=== PATIENT | female | born 1990 | race Caucasian/White ===

== ENCOUNTER 2025-04-15 09:22 | Emergency (ER) | payer SELFPAY ==
[2025-04-15 09:52] VITALS: BP 102/55; PULSE 79; RESP 20; TEMP 36.7; O2SAT 99
--- OUTSIDE RECORDS SUMMARY | 2025-04-15 09:52 | XMS_ITS | Encounter Summary ---
Author Organization [facility] Address [address] [facility] [place] [address] Care Team Providers Care Residential Real Estate Assistant Name Role Phone Tristian Mayes MD Primary Care Provider [phone] Encounter Details Date Type Department Care Team (Late st Contact Info) Description 03/01/2025 Results Follow-Up [facility] - Internal Medicine [address] [phone] Laura Navarro, ADMITTING OFFICER-PREPARATION PLANT SUPERVISOR [address] [id number] Social History Tobacco Use Types Packs/Day Years Used Date Smoking Tobacco: Former Cigarettes Smokeless Tobacco: Never Alcohol Use Standard Drinks/Week Comments Not Currently 3.3 (1 standard drink = 0.6 oz p ure alcohol) occ wine/beer/liquor AUDIT-C Answer Date Recorded Q1: How often do you have a drink containing alc ohol? 2-3 times a week 12/03/2022 Q2: How many drinks containi ng alcohol do you have on a typical day when you are drinking? 1 or 2 12/03/2022 Frequency of Binge Drinking Not on file 11/16 Overall Financial Resource Strain (CARDIA) Answe r Date Recorded How hard is it for you to pa y for the very basics like food, housing, medical care, and heating? Not very hard 03/22/2024 PHQ-2 Answer Date Recorded Patient Health Questionnaire-2 Score 2 03/01/2025 [facility] - Occupational Stress Questionnaire Answer Date Recorded Do you feel stress - tense, restless, nervous, or anxious, or unable to sleep at night because your mind is troubled all the time - these days? Only a little 03/22/2024 Hunger Vital Sign Answer Date Recorded Within the past 12 months, y ou worried that your food would run out before you got the money to buy more. Never true 03/22/20 Within the past 12 months, t he food you bought just didn't last and you didn't have money to get more. Never true 03/22/2024 PRAPARE - Transportation Answer Date Re corded In the past 12 months, has l ack of transportation kept you from medical appointments or from getting medications? No 05/2024 In the past 12 months, has l ack of transportation kept you from meetings, work, or from getting things needed for daily living? No 03/22/2024 Housing Stability Vital Sign Answer Jaciel e Recorded In the last 12 months, was t here a time when you were not able to pay the mortgage or rent on time? No 03/22/2024 [address] Lived in the Last Year Not on f ile 03/22/2024 In the last 12 months, was t here a time when you did not have a steady place to sleep or slept in a usp (including now)? No 03/22/2024 Comments No Sex and Gender Information Value Date Recorded Sex Assigned at Female 10/14/2022 6:17 PM [employer] Legal Sex Female 8:07 AM [employer] DIRECT[employer] Gender Identity Female 08/09/2019 2:02 PM CDT Sexual Orientation Straight 10/14/2022 6: 17 PM [employer] DIRECTOR documented as of this encounter Functional Status * Is person deaf or have serious hearing difficulty? Answer Date of Assessment Author No 05/09/2022 7:50 AM CDT Zac Gonzalez RN * Is person blind or have serious difficulty seeing? Answer Date of Assessment Author No 05/09/2022 7:50 AM CDT Zac Gonzalez RN * Does person have serious difficulty walking/climbing stairs? Answer Date of Assessment Author No 05/09/2022 7:50 AM CDT Zac Gonzalez RN * Does person have difficulty dressing/bathing? Answer Date of Assessment Author No 05/09/2022 7:50 AM SIENNAT Zac Gonzalez RN * Does person have difficulty doing errands alone? Answer Date of Assessment Author No 05/09/2022 7:50 AM SIENNAT Zac Gonzalez RN * Over the past 2 weeks, how often have you been bothered by any of the following problems? Question Answer Date of Assessment Author Patient Health Questionnaire-2 Score 2 03/01/2025 10:45 AM CDT Mychart, Proce ss Support User * Little interest or pleasure in doing things Answer Date of Assessment Author Several days 03/01/2025 10:45 AM CDT Mychart, Process Support User * Feeling down, depressed, or hopeless Answer Date of Assessment Author Several days 03/01/2025 10:45 AM CDT [place], Process Support User documented as of this encounter Mental Status * Does person have difficulty concentrating/remembering/making decisions? Answer Entry Date Author No 05/09/2022 7:50 AM SIENNAT Zac Gonzalez RN documented in this encounter Progress Notes * Laura Navarro APRN-CNP - 03/01/2025 12:07 PM CDT MRI overall looks okay. Shows mild thickening of the MCL ligament, possible sprain without tear. Smalll bakers cyst to posterior knee which I suspect not to be causing issues. If pain continues, then should see ortho. Consider PT if not already documented in this encounter Plan of Treatment Upcoming Encounters Date Type Department Care Team (Late st Contact Info) Description 04/17/2025 10:45 AM CDT Video Visit [facility] - Internal Medicine [address] [facility] [address] [place] [phone] Tristian Mayes MD [address] [facility] [address] [place] [phone] 05/01/2025 9:15 AM CDT Office Visit [facility] - Internal Medicine [address] [place] [phone] Laura Navarro APRN-CNP [address] [place] [phone] 11/06/2025 9:15 AM [employer] DIRECT[employer] Office Visit [facility] - Internal Medicine [address] [place] [phone] Tristian Mayes MD [address] [place] [phone] documented as of this encounter Visit Diagnoses Not on filedocumented in this encounter Care Teams Residential Real Estate Assistant Relationship Specialty Start Date End Date Tristian Mayes MD [address] [place] [phone] PCP - General 11/29/09 documented as of this encounter
--- OUTSIDE RECORDS SUMMARY | 2025-04-15 09:53 | XMS_ITS | Clinical Summary ---
Author Organization [email or web address] Address [address] [place] [address] Care Team Providers Care Slip Cover Estimator Name Role Phone Tristian Mayes MD Primary Care Provider [phone] Source Comments [facility] [employer],non-owned Affiliates and Associated Physician Practices is amultiple site organization consisting of ambulatory clinics and hospital sitesin [place], [place], [place] and [place]. This disclosure is being madepursuant to the Care Everywhere program and may not contain all information available regarding this patient. Last updated 18.[facility] [employer] Allergies No known active allergies Medications * This document contains information received from the source organization and may not represent a complete record from that organization. * Be aware that medications may not be up to date on this document. Alwaysverify current medications with the patient. triamterene-hydroC HLOROthiazide (Maxzide-25) 37.5-25 MG tablet Take 1 (one) tablet by mouth once daily 90 tablet 4 Active levonorgestrel-eth inyl estradiol (Vienva) 0.1-20 MG-MCG tablet Take 1 (one) tablet by mouth once daily Active diclofenac sodium (Voltaren) 1 % gel Apply 4 (four) g to affected area 4 times daily 100 g 3 5 Active oxyBUTYnin (Ditropan) 5 MG tablet Take 1 (one) tablet by mouth at bedtime 90 tablet 3 5 Active ARIPiprazole (Abilify) 2 MG tablet Take 2 (two) tablets by mouth once daily 180 tablet 5 Active ondansetron (Zofran) 4 MG tablet Take 1 (one) tablet by mouth every 8 hours 20 tablet 1 5 Active ALPRAZolam (Xanax) 0.5 MG tabletIndications: Mood disorder Take 1 (one) tablet by mouth 3 times daily as needed for Anxiety 60 tablet 1 5 Active sertraline (Zoloft) 100 MG tablet Take 1.5 (one and one-half) tablets by mouth once daily 45 tablet 3 5 Active albuterol HFA (Proventil; Ventolin; Proair) 108 (90 Base) MCG/ACT inhaler Inhale 2 (two) puffs by mouth every 6 hours as needed 6.7 g 1 5 Active amphetamine-dextro amphetamine (Adderall) 20 MG tabletIndications: Attention deficit hyperactivity disorder (ADHD), unspecified ADHD type Take 1 (one) tablet by mouth every afternoon 30 tablet 5 Active amphetamine-dextro amphetamine XR 24hr (Adderall XR) 20 MG capsuleIndications :Attention deficit hyperactivity disorder (ADHD), unspecified ADHD type Take 1 (one) capsule by mouth every morning 30 capsule 5 Active amphetamine-dextro amphetamine (Adderall) 20 MG tabletIndications: Attention deficit hyperactivity disorder (ADHD), unspecified ADHD type Take 1 (one) tablet by mouth every afternoon 30 tablet 5 Active amphetamine-dextro amphetamine XR 24hr (Adderall XR) 20 MG capsuleIndications :Attention deficit hyperactivity disorder (ADHD), unspecified ADHD type Take 1 (one) capsule by mouth every morning 30 capsule 5 Active Active Problems Problem Noted Date Diagnosed Date Nocturia 08/26/2024 Overview (08/26/2024): Location: bladder Quality: nocturia (4-6 trips to urinate per night) Duration: 6+ months Severity: mod to severe Modifying: none, no improvement with imipramine started >1 year ago Timing: nightly Associated signs/symptoms: some LULÚ symptoms, no daytime OAB symptoms Assessment & Plan (08/26/2024 11:17 AM CDT): Reviewed medication list, patient taking diuretic antihypertensive in the afternoon, which could be causing/contributory to her symptoms; recommended she switch to taking it in the AM Recommend cessation of imipramine given no benefit since starting Rx given for ditropan, will start if symptoms still present after adjusting timing of HCTZ Mood disorder 02/01/2015 Family history of early CAD 11/13/2009 Family history of thyroid disease 11/13/2009 Attention deficit hyperactivity disorder (ADHD) 11/13/2009 Resolved Problems Problem Noted Date Diagnosed Date Resolved Date Acute cholecystitis 03/21/2024 10/31/20 Syncope, unspecified syncope type 03/21/2024 10/31/2024 Indication for care in labor or delivery 05/09/2022 08/17/2023 30 weeks gestation of 03/08/2022 08/17/2023 Indication for care in labor and delivery, antepartum 12/09/2019 08/17/2023 Encounter for health-related screening 09/27/2009 04/05/2014 Overview (02/13/2018): Adult Abstraction Problem List Screening Dexa Scan (Bone Density): Pap Smear: 09/27/09 Neg with pos. Chlamydia Mammogram: CF Test: IMO update 02 14 2018 Encounters Date Type Department Care Team Description 03/15/2025 Refill [facility] Internal Medicine [address] [place] [phone] Tristian Mayes MD Refill Request 03/12/2025 Refill [facility] Internal Medicine [address] [place] [phone] Tristian Mayes MD MEDICATION REFILL 03/02/2025 7:45 AM CDT Office Visit [facility] Internal Medicine [address] [place] [phone] Laura Navarro, MOBILE CRANE OPERATOR-CLIN TECH Pruritus (Primary Dx); Acute pain of left knee 03/02/2025 Travel 03/01/2025 Results Follow-Up [facility] Internal Medicine [address] [place] [phone] Laura Navarro APRN-CNP 02/27/2025 6:51 AM CDT - 02/27/2025 11:59 PM CDT Hospital Encounter [facility] Imaging Services - MRI [address] [place] [address] Laura Navarro APRN-CNP Discharge Disposition: Home or Self Care 02/03/2025 Refill [facility] Internal Medicine [address] [place] [phone] Tristian Mayes MD Refill Request 02/03/2025 Travel 02/02/2025 Refill [facility] - Internal Medicine [address] [place] [phone] Tristian Mayes MD MEDICATION REFILL 02/02/2025 Refill [facility] - AGRICULTURAL EDUCATION INSTRUCTOR [address] [place] [phone] Michael Carlson MD MEDICATION REFILL from Last 3 Months Immunizations Immunization Administration Dates Next Due [employer] primary monoval ent 12+ yr 0.3mL Purple cap 05/21/2021,04/29/2021 DTaP VACCINE IM (6wk-6yrs) 10/04/1993,,1989,1988,1989 HEP A VACCINE, ADULT 03/18/2024,08/17/2023 HEP B VACCINE, PED/ADOL 10/12/1996,04/01/1996, HIB BOOSTER 08/22/1990 Human Papilloma Virus Nineva lent Vaccine 05/29/2016,02/26/2016 Human Papilloma Virus Karissa valent Vaccine 04/05/2014 INFLUENZA VACCINE 10/13/2012,08/30/2009 INFLUENZA VACCINE, QUADR. (F LUZONE; FLULAVAL; FLUARIX; AFLURIA QUADRIVALENT; 6MO+), 0.5 ML (IIV4) 08/17/2023,08/09/2019 MMR 05/10/2022(Deferred: Patient Condition),02/19/1999,08/22/1990 POLIO IPV 10/04/1993, 1,1989,1988 TD VACCINE 04/30/2002 TDAP (7yrs+) 12/03/2022, 2(Deferred: Patient Condition),11/28/2019,11/24/2011 VARICELLA 11/17/1993 Family History Medical History Relation Name Comments Thyroid Disease Brother Twins Father was a twin Cancer Maternal Grandfather Diabetes Maternal Grandfather Heart Disease Maternal Grandfather Hypertension Maternal Grandfather Heart Disease Maternal Grandmother Hypertension Maternal Grandmother Leukemia Maternal Grandmother Arthritis Mother COPD - Chronic Obstructive Pulmonary Disease Mother Heart Disease Mother Hypertension Mother Thyroid Disease Mother Cancer Paternal Grandfather lung ca ncer Cancer - Breast Neg Hx Relation Name Status Comments Brother Father Alive Maternal Grandfather Maternal Grandmother Mother Paternal Grandfather Social History Tobacco Use Types Packs/Day Years Used Date Smoking Tobacco: Former Cigarettes Smokeless Tobacco: Never Tobacco Cessation:Counseling Given: Not Answered Alcohol Use Standard Drinks/Week Comments Not Currently [...] Recorded Patient Health Questionnaire-2 Score 2 03/01/2025 [facility] - Occupational Stress [...] money to buy more. Never true 03/22/20 24 Within the past 12 months, t he [...] place to sleep or slept in a m[facility]p (including now)? No 03/22/2024 Comments No Sex and Gender Information Value Date Recorded Sex Assigned at Female 10/14/2022 6:17 PM LICENSING ENGINEER Legal Sex Female 8:07 AM LICENSING ENGINEER Gender Identity Female 08/09/2019 2:02 PM CDT Sexual Orientation Straight 10/14/2022 6: 17 PM LICENSING ENGINEER Last Filed Vital Signs Vital Sign Reading Time Taken Comments Blood Pressure 118/74 03/02/2025 7:37 AM CDT Pulse 71 03/02/2025 7:37 AM CDT Temperature 36.5 C (97.7 F) 03/02/2025 7:37 AM CDT Respiratory Rate 18 10/02/2024 12:31 PM LICENSING ENGINEER Oxygen Saturation 98% 03/02/2025 7:37 AM CDT Inhaled Oxygen Concentration - - Weight 96.6 kg (213 lb) 03/02/2025 7:37 AM CDT Height 170.2 cm (5' 7) 10/31/2024 1:18 PM LICENSING ENGINEER Body Mass Index 33.36 10/31/2024 1:18 PM LICENSING ENGINEER Plan of Treatment Upcoming Encounters Date Type Department Care Team (Late st Contact Info) Description 04/17/2025 10:45 AM CDT Video Visit [facility] - Internal Medicine [address] [place] [phone] Tristian Mayes MD [address] [place] [address] [address] [place] [phone] 05/01/2025 9:15 AM CDT Office Visit [facility] - Internal Medicine [address] [place] [phone] Laura Navarro, MOBILE CRANE OPERATOR-CLIN TECH [address] [place] [phone] 11/06/2025 9:15 AM LICENSING ENGINEER Office Visit [facility] - Internal Medicine [address] [place] [phone] Tristain Mayes MD [address] [place] [phone] Health Maintenance Due Date Last Done Comments COVID-19 VACCINE ( season) 2024 05/21/2021, 04/29/2021 INFLUENZA VACCINE (Season Ended) 2025 08/17/2023, 08/09/2019, 10/13/2012, Additional history exists MAMMOGRAM 10/07/2025 10/07/2024, 07/31/2022 PAP with HPV 10/26/2028 10/26/2023 DTAP/TDAP/TD VACCINES (10 - Td or Tdap) 12/03/2032 12/03/2022, 11/28/2019, 11/24/2011, Additional history exists ZOSTER VACCINE (1 of 2) 2039 HIB VACCINE Completed 08/22/1990 HEPATITIS B VACCINE Completed 10/12/1996, 04/01/1996, 01/13/1996 HPV VACCINE Completed 05/29/2016, 02/14, 04/05/2014 HIV SCREENING Completed 05/23/2019, 02/14, 10/08/2009 HEPATITIS A VACCINE Completed 03/18/2024, HEPATITIS C SCREENING Completed 03/23/2024 , 05/23/2019, 10/08/2009 DEPRESSION SCREENING Completed 12/12/2024, 03/18/2024, 12/17/2022, Additional history exists MENINGOCOCCAL (Group B) VACCINE SHARED DECISION-MAKING Aged Out No longer eligible based on patient's age to complete this topic MENINGOCOCCAL GROUPS A/C/Y/W VACCINE Aged Out No longer eligible based on patient's age to complete this topic PNEUMOCOCCAL VACCINE Aged Out No long er eligible based on patient's age to complete this topic Procedures Procedure Name Priority Date/Time Associated Diagnosis Comments MRI KNEE LEFT WO CONTRAST Routine 02/27/2025 7:56 AM CDT Acute pain of left knee Injury of left knee, initial encounter MAMMO BILAT SCREENING W JALEN Routine 10/07/2024 2:14 PM LICENSING ENGINEER Visit for screening mammogram HEPATITIS SCREEN ACUTE AM Draw 03/23/2024 4:28 AM CDT RLQ abdominal pain Acute cholecystitis PAP IG LB +HPV APTIMA REFLEX 16,18/45 Routine 10/26/2023 11:48 AM LICENSING ENGINEER Well woman exam with routine gynecological exam HIV-1 HIV-2 ANTIBODY + HIV P24 AG PANEL Routine 05/23/2019 2:13 PM CDT Encounter for supervision of normal first in first trimester from Last 3 Months or Most Recently Relevant to Health Maintenance Results * MRI Knee Left Wo Contrast (02/27/2025 7:56 AM CDT) Anatomical Region Laterality Modality Lower Extremity Magnetic Resonan ce 02/28/2025 10:4 2 AM CDT Impressions 02/28/2025 10:48 AM CDT IMPRESSION: 1. No cruciate or collateral ligament tear. 2. Mild thickening of the MCL may relate to prior sprain, but no discrete tear. 3. No significant chondral thinning. 4. No evidence of meniscal tear. 5. Small knee joint effusion. Trace Bui's cyst. 6. Moderate fatty replacement of the medial gastrocnemius muscle. > Interpreting Provider: Isidro Nation MD on 02/28/2025 10:48 AM Narrative 02/28/2025 10:48 AM CDT PROCEDURE: MRI KNEE LEFT WO CONTRAST, DATE/TIME OF EXAM: 02/27/2025 7:56 AM, LOCATION [facility] INDICATION: M25.562: Pain in left knee S89.92XA: Unspecified injury of left lower leg, initial encounter ADDITIONAL CLINICAL INFORMATION: Ordering Provider Reason For Exam: Technologist Note: Additional: COMPARISON: Radiographs 12/12/2024 TECHNIQUE: MRI of the knee was performed without contrast. FINDINGS: Joint and Bursae: There is a small knee joint effusion. There is a trace Bui's cyst. Bones: No fracture. Cartilage: Patellofemoral: Articular cartilage appears relatively well preserved within the patellofemoral compartment, with some minor areas of chondral irregularity. Medial compartment: Articular cartilage appears relatively well preserved medially. Lateral Compartment: Articular cartilage appears relatively well preserved laterally. Ligaments: Mild thickening of the MCL could relate to a prior sprain. No acute tear. The ACL, PCL, lateral collateral ligament complex appear intact. Extensor Mechanism: The quadriceps and patellar tendons are intact. The medial and lateral patellar retinacula are intact. Tendons/Soft tissues: There is fatty replacement of the medial gastrocnemius muscle. No evidence of a discrete mass along the course of the nerves. Posterior lymph node is noted. Popliteus muscle and tendon appear intact. There is mild soft tissue swelling. Mensici: Medial and Lateral menisci appear intact. Procedure Note Isidro Nation MD - 02/28/2025 PROCEDURE: MRI KNEE LEFT WO CONTRAST, DATE/TIME OF EXAM: 57:56 AM, LOCATION [facility] INDICATION: M25.562: Pain in left knee S89.92XA: Unspecified injury of left lower leg, initial encounter ADDITIONAL CLINICAL INFORMATION: Ordering Provider Reason For Exam: Technologist Note: Additional: COMPARISON: Radiographs 12/12/2024 TECHNIQUE: MRI of the knee was performed without contrast. FINDINGS: Joint and Bursae: There is a small knee joint effusion. There is a trace Bui's cyst. Bones: No fracture. Cartilage: Patellofemoral: Articular cartilage appears relatively well preserved within the patellofemoral compartment, with some minor areasof chondral irregularity. Medial compartment: Articular cartilage appears relatively well preserved medially. Lateral Compartment: Articular cartilage appears relativelywell preserved laterally. Ligaments: Mild thickening of the MCL could relate to a prior sprain. No acute tear. The ACL, PCL, lateral collateral ligament complex appear intact. Extensor Mechanism: The quadriceps and patellar tendons are intact. The medial and lateral patellar retinacula are intact. Tendons/Soft tissues: There is fatty replacement of the medial gastrocnemius muscle. No evidence of a discrete mass along the course of the nerves. Posterior lymph node is noted. Popliteus muscle and tendon appear intact. There is mild soft tissue swelling. Mensici: Medial and Lateral menisci appear intact. IMPRESSION: 1. No cruciate or collateral ligament tear. 2. Mild thickening of the MCL may relate to prior sprain, but nodiscrete tear. 3. No significant chondral thinning. 4. No evidence of meniscal tear. 5. Small knee joint effusion. Trace Bui's cyst. 6. Moderate fatty replacement of the medial gastrocnemius muscle. > Interpreting Provider: Isidro Ntaion MD on 02/28/2025 10:48 AM Laura Navarro MOBILE CRANE OPERATOR-CLIN TECH MR ORDERABLES Fi nal Result * Mammo Bilat Screening W Jalen (10/07/2024 2:14 PM LICENSING ENGINEER) Anatomical Region Laterality Modality Breast Bilateral Mammography 10/10/2024 11:4 2 AM LICENSING ENGINEER Narrative 10/10/2024 11:50 AM LICENSING ENGINEER EXAMINATION: DIGITAL MAMMO BILAT SCREENING W JALEN DATE: 10/07/2024 Breast composition: The breasts are almost entirely fatty Body of report: comparison exam from 07/31/2022 These images were interpreted with the aid of CAD. 3-D tomosynthesis was utilized in the interpretation of this exam. There are no spiculated lesions or areas of architectural distortion. No suspicious calcifications are seen. Compared to the prior exam, there has been no suspicious interval change. BI-RADS assessment category: Category one, negative. Recommendation: Return to annual mammograms at the age of 40, or earlier if clinically indicated (patient is symptomatic or has increased risk due to family history) > Interpreting Provider: Tracy Theodore MD on 10/10/2024 11:50 AM Tristian Mayes MD MAMMO ORDERABLES Final Result * HEPATITIS SCREEN ACUTE (03/23/2024 4:28 AM CDT) HAV Antibody IgM Non Reactive Non Reactive 03/23/2024 10:37 AM CDT [facility] HBsAg Non Reactive Non Reactive 03/23/2024 10:37 AM CDT [facility] HBc Antibody IgM Non Reactive Non Reactive 03/23/2024 10:37 AM CDT [facility] HCV Antibody Screen Non Reactive Non Reactive 03/23/2024 10:37 AM CDT [facility] Blood BLOOD SPECIMEN / Unknown Lab Venipuncture / Unknown 03/23/2024 4:28 AM CDT 03/23/2024 4:52 AM CDT Narrative [facility] - 03/23/2024 10:37 AM CDT Non Reactive - Antibodies to Hepatitis C virus (HCV) were not detected, result does not exclude early acute HCV infection. Ashtyn Tello MOBILE CRANE OPERATOR-CLIN TECH LAB - CHEMISTRY ORDERAB LES Final Result [facility] [address] [id number] * PAP IG LB +HPV APTIMA REFLEX 16,18/45 (10/26/2023 11:48 AM LICENSING ENGINEER) Diagnosis Comment 10/28/2023 11:11 AM LICENSING ENGINEER [facility] ([facility]) Comment: NEGATIVE FOR INTRAEPITHELIAL LESION OR MALIGNANCY. CELLULAR CHANGES ASSOCIATED WITH INFLAMMATION ARE PRESENT. Specimen Adequacy Comment 023 11:11 AM LICENSING ENGINEER [facility] ([facility]) Comment: Satisfactory for evaluation. Endocervical and/or squamous metaplastic cells (endocervical component) are present. Performed by Comment 10/28/2023 11:11 AM LICENSING ENGINEER [facility] ([facility]) Comment:Brianna Fregoso, Cyto technologist (ASCP) Comment . 10/28/2023 11:11 AM LICENSING ENGINEER [facility] ([facility]) Note Comment 10/28/2023 11:11 AM LICENSING ENGINEER [facility] ([facility]) Comment: The Pap smear is a screening test designed to aid in the detection of premalignant and malignant conditions of the uterine cervix. It is not a diagnostic procedure and should not be used as the sole means of detecting cervical cancer. Both false-positive and false-negative reports do occur. [facility] CPT Code Automation Comment 10/28/2023 11:11 AM [facility] Comment: This liquid based ThinPrep(R) pap test was screened with the use of an image guided system. Human papillomavirus Aptima Negative Negative 10/28/2023 11:11 AM [facility] ([facility]) Comment: This nucleic acid amplification test detects fourteen high-risk HPV types (16,18,31,33,35,39,45,51,52,56,58,59,66,68) without differentiation. HPV Genotype Reflexed Comment 10/28/2023 11:11 AM [facility] ([facility]) Comment:Criteria not met, HP V Genotype not performed. PART OF UTERINE CERVIX / Unknown 10/26/2023 11:48 AM LICENSING ENGINEER 10/26/2023 12:16 PM LICENSING ENGINEER Narrative [facility] ([facility]) - 10/28/2023 11:11 AM LICENSING ENGINEER Performed at: [address] [id number] Build Automation Engineer: Layne Padilla MD, Phone: [phone] Performed at: [address] [id number] Build Automation Engineer: Layne Padilla MD, Phone: [phone] Specimen Comment: No. of containers..01 ThinPrep Vial Edwin Dunbar Jr., MD LAB - PATHOLOGY/CYTOL OGY ORDERABLES Final Result [facility] ([facility]) [address] [place] [address] * HIV-1 HIV-2 ANTIBODY + HIV P24 AG PANEL (05/23/2019 2:13 PM CDT) HIV Screen 4th Generation w Reflex Non Reactive Non Reactive [facility] ACCOUNT BILL Blood BLOOD SPECIMEN / Unknown 05/23/2019 2:13 PM CDT 05/23/2019 Narrative Resulting Agency Comment Lab Testing performed at: [facility] [address] [facility] [address] [id number] Chanel Red MD LAB - CHEMISTRY ORDERAB LES Final Result [facility] ACCOUNT BILL [address] [place] [address] from Last 3 Months or Most Recently Relevant to Health Maintenance Insurance [employer] [facility] Advance Directives * Full Code (Latest Code Status on File) Date Activated Date Inactivated Comments 03/21/2024 5:35 PM 03/26/2024 5:54 PM * Full Code Date Activated Date Inactivated Comments 05/09/2022 7:34 AM 05/11/2022 12:27 PM * Full Code Date Activated Date Inactivated Comments 01/11/2020 10:46 PM 01/15/2020 4:17 PM Care Teams Slip Cover Estimator Relationship Specialty Start Date End Date Tristian Mayes MD [address] [place] [id number] PCP - General 11/29/09
--- OUTSIDE RECORDS SUMMARY | 2025-04-15 09:53 | XMS_ITS | Encounter Summary ---
Author Organization [facility] Health Address [address] [place] [address] Care Team Providers Care Ferry Pilot Name Role Phone Tristian Mayes MD Primary Care Provider Jacque Morrell SHEET METAL LAYOUT WORKER-RNFA Unavailable [phone] Tristian Mayes MD Unavailable [phone] Laura Navarro SHEET METAL LAYOUT WORKER-RNFA Unavailable + Phil Mckeon PARK INTERPRETIVE RANGER Unavailable Reason for Visit * Reason Onset Date Comments Patient Requested Call 05/09/2021 Encounter Details Date Type Department Care Team (Late st Contact Info) Description 05/09/2021 Telephone [facility] [address], [address] [place] [phone] Zina Bradley, SHEET METAL LAYOUT WORKER-RNFA [address] [place] [address] Patient Requested Call Social History Tobacco Use Types Packs/Day Years Used Date Smoking Tobacco: Former Cigarettes Smokeless Tobacco: Never Alcohol Use Standard Drinks/Week Comments Yes 3.3 (1 standard drink = 0.6 oz p ure alcohol) occ wine/beer/liquor PHQ-2 Answer Date Recorded PHQ2 TOTAL SCORE 0 05/08/2021 Comments No Sex and Gender Information Value Date Recorded Sex Assigned at Female 10/14/2022 6:17 PM BICYCLE REPAIRMAN Legal Sex Female 8:07 AM BICYCLE REPAIRMAN Gender Identity Female 08/09/2019 2:02 PM CDT Sexual Orientation Straight 10/14/2022 6: 17 PM BICYCLE REPAIRMAN documented as of this encounter Functional Status * Is person deaf or have serious hearing difficulty? Answer Date of Assessment Author No 01/20/2020 10:30 PM Rhonda Villegas RN * Is person blind or have serious difficulty seeing? Answer Date of Assessment Author No 01/20/2020 10:30 PM Rhonda Villegas RN * Does person have serious difficulty walking/climbing stairs? Answer Date of Assessment Author No 01/20/2020 10:30 PM Rhonda Villegas RN * Does person have difficulty dressing/bathing? Answer Date of Assessment Author No 01/20/2020 10:30 PM Rhonda Villegas RN * Does person have difficulty doing errands alone? Answer Date of Assessment Author No 01/20/2020 10:30 PM Rhonda Villegas RN documented as of this encounter Mental Status * Does person have difficulty concentrating/remembering/making decisions? Answer Entry Date Author No 01/20/2020 10:30 PM Rhonda Villegas RN documented in this encounter Miscellaneous Notes * Telephone Encounter - Loly Vasquez - 05/09/2021 12:28 PM CDT Who is calling? Self What is the reason for call? Patient is calling a second time to have you call in the mouthwash to pharmacy on file. Expected Response from the Clinic? Please resend mouthwash or call her. documented in this encounter Plan of Treatment Upcoming Encounters Date Type Department Care Team (Late st Contact Info) Description 04/17/2025 10:45 AM CDT Video Visit [facility] - Internal Medicine [address] [place] [phone] Tristian Mayes MD [address] [place] [phone] 05/01/2025 9:15 AM CDT Office Visit [facility] - Internal Medicine [address] [place] [phone] Laura Navarro, SHEET METAL LAYOUT WORKER-RNFA [address] [place] [phone] 11/06/2025 9:15 AM BICYCLE REPAIRMAN Office Visit [facility] - Internal Medicine [address] [place] [phone] Tristain Mayes MD [address] [place] [phone] documented as of this encounter Visit Diagnoses Not on filedocumented in this encounter Additional Health Concerns Infection Onset Date Last Indicated Resolved Time COVID-19 Under Investigation 11/13/2021 11/13/2021 11/13/2021 6:06 PM BICYCLE REPAIRMAN COVID-19 Under Investigation 09/18/2022 09/18/2022 09/18/2022 3:13 PM CDT COVID-19 Under Investigation 09/18/2022 09/18/2022 09/19/2022 3:07 PM CDT CDIFF Under Investigation 03/18/2024 03/18/2024 1:58 PM CDT COVID-19 Under Investigation 03/21/2024 03/21/2024 03/21/2024 4:32 PM CDT documented as of this encounter Care Teams Ferry Pilot Relationship Specialty Start Date End Date Tristian Mayes MD [address] [place] [phone] PCP - General 11/29/09 Jacque Morrell, SHEET METAL LAYOUT WORKER-RNFA [address] [place] [phone] PCP - Attributed-[employer] STL 11/16/22 12/16/22 Tristian Mayes MD [address] [place] [address] PCP - Attributed-[employer] STL 12/17/22 08/15/23 Laura Navarro, CLAUDIA-RNFA [address] [place] [id number] PCP - Attributed-[employer] ST 08/16/23 11/02/23 Phil Mckeon MSW Outpatient Political Science Faculty Member Care Management 03/28/2403/16 documented as of this encounter
--- NOTE | 2025-04-15 09:59 | ED.GENADULT ---
HPI - General Adult General Chief complaint: Animal Bite Stated complaint: bit by squirrel Time Seen by Provider: 04/15/25 09:43 History of Present Illness HPI narrative: This is a 34-year-old female presenting after a squirrel bite. The patient's dog caught a squirrel asthma the patient free the scrotum was driving to emergency effect. The school got out of the top she is keeping in hit her on the left forearm. This squirrel was acting appropriate and did not appear ill. Related Data Allergies Allergy/AdvReac Type Severity Reaction Status Date / Time No Known Allergies Allergy Verified 04/15/25 10:00 Exam Narrative: APPEARANCE: No apparent distress. Head: atraumatic. EYES: EOMI, NOSE: Atraumatic NECK: Trachea midline RESPIRATORY: No increased rate of breathing CARDIOVASCULAR: RRR, ABDOMINAL: Non-distended MUSCULOSKELETAl: No obvious deformities NEURO: Alert. Moving 4/4 extremities SKIN:: Shallow break in the skin left forearm with superficial scratches PSYCHIATRIC: Normal affect Medical Decision Making MDM Narrative Medical decision making narrative: -Course: 34-year-old female presenting for scrotal bite. This was a very low risk for rabies there are no recorded case of transmission to humans in [place]. The animal was acting appropriately given situation. No indication for rabies vaccine in this situation. Patient had wound cleansed, was given Augmentin and Tdap. Return precautions for infection. Discharge Plan Discharge Clinical Impression: Bite by animal Patient Disposition: Home Condition: Stable Instructions: Antibiotic Form, Animal Bite (ED) Additional Instructions: Please take the antibiotics as instructed. Please return if you develop signs of infection such as redness swelling or purulent discharge. Please follow-up with primary care physician in 1 week Patient Language: Latvian Prescriptions: New amoxicillin-pot clavulanate 875-125 mg tablet 1 tablet PO Q12H Qty: 20 0RF Follow-up/Referrals: PHYSICIAN NOT ON STAFF,NONSTAFF [Primary Care Provider] -
[2025-04-15] MEDS: TETANUS,DIPHTHERIA,AC PERTUSSIS ADULT (0.5 ML) BOOSTRIX IM (10:10)
[2025-04-15] MEDS: AMOXICILLIN/CLAVULANATE K 875-125 MG TAB 1 TABLET PO (10:10)
== END 2025-04-15 10:20 | disposition home or self-care (01) ==
PROVIDERS: Emergency Provider Emergency Medicine
DX: S50.872A Other superficial bite of left forearm, initial encounter (principal); W53.21XA Bitten by squirrel, initial encounter; Y92.9 Unspecified place or not applicable; Z23 Encounter for immunization
CPT/HCPCS: 90471; 90715; 99283; A9270